=== PATIENT | male | born 1980 | race Caucasian/White ===

== ENCOUNTER 2020-05-17 12:34 | Emergency (ER) | payer MEDICAID ==
[~2020-05-17] VITALS: Ht 162.6 cm; Wt 124.7 kg
[2020-05-17 12:43] VITALS: BP 131/91
--- NOTE | 2020-05-17 13:06 | NUR ---
40 YEAR OLD MALE COMPLAINS OF SWELLING, REDNESS, AND WARMNESS IN LEFT LOWER EXTREMITY. PT DENIES PAIN OR TRAUMA. PT STATES HE WOKE UP AND NOTICED IT, NO VISIBLE WOUND. PT AOX4, BREATHING EVEN AND UNLABORED, SKIN WARM AND DRY. BED IN LOWEST POSITION, LOCKED, BED RAIL UPX1. PMH - DENIES ALLERGIES - NKA
[2020-05-17] MEDS ORDERED: AMPICILLIN/SULBACTAM 3 GM in NACL 0.9% MINI-BAG PLUS 100 ML IV ONE (13:10)
[2020-05-17] MEDS ORDERED: NACL 0.9% 1,000 ML IV SCH (13:10)
[2020-05-17] MEDS ORDERED: AMPICILLIN/SULBACTAM 3 GM VIAL ONE (13:20)
[2020-05-17 13:29] LABS: BASOPHILS % (AUTO) 0.4 % (0.0-2.0); EOSINOPHILS # (AUTO) 0.3 K/uL (0-0.4); EOSINOPHILS % (AUTO) 4.1 % (0.0-4.0); HEMATOCRIT 40.9 % (36-52); LYMPHOCYTES # (AUTO) 1.9 K/uL (2.0-11.5); LYMPHOCYTES % (AUTO) 22.8 % (20.5-51.1); MEAN CORPUSCULAR HEMOGLOBIN 31 pg (27-31); MEAN CORPUSCULAR HGB CONC 34 g/dL (33-37); MEAN CORPUSCULAR VOLUME 91.3 fL (80-94); MONOCYTES # (AUTO) 0.7 K/uL (0.8-1.0); MONOCYTES % (AUTO) 8.2 % (1.7-9.3); NEUTROPHILS # (AUTO) 5.3 K/uL (1.8-7.7); NEUTROPHILS % (AUTO) 64.5 % (42.2-75.2); PLATELET COUNT (AUTO) 225 K/uL (140-450); RED BLOOD CELL COUNT(AUTO) 4.48 MIL/uL (4.20-6.10); RED CELL DISTRIBUTION WIDTH 14.2 % (11.6-13.7); WHITE BLOOD COUNT (AUTO) 8.3 K/uL (4.8-10.8)
[2020-05-17 13:40] LABS: ANION GAP 13.9 (8-16); CARBON DIOXIDE 25.5 mmol/L (21-32); CREATININE 1.2 mg/dL (0.6-1.3); POTASSIUM 3.4 mmol/L (3.5-5.1)
--- NOTE | 2020-05-17 14:35 | NUR ---
Patient discharged with v/s stable. Written and verbal after care instructions about cellulitis given and explained. Patient alert, oriented and verbalized understanding of instructions. Ambulatory with steady gait. All questions addressed prior to discharge. ID band removed. Patient advised to follow up with PMD. Rx of keflex and bactrim given. Patient educated on indication of medication including possible reaction and side effects. Opportunity to ask questions provided and answered.
[2020-05-17 14:36] VITALS: BP 122/81
== END 2020-05-17 14:35 | disposition home or self-care (01) ==
LOC: MED 12:34
DX: L03.115 Cellulitis of right lower limb (principal)
CPT/HCPCS: 36415; 80048; 83605; 85025; 87040; 96365; 99284; J0295; J7030

== ENCOUNTER 2020-08-24 10:37 | Emergency (ER) | payer MEDICAID ==
[~2020-08-24] VITALS: Ht 175.3 cm; Wt 127.0 kg
[2020-08-24 10:42] VITALS: BP 143/84
--- NOTE | 2020-08-24 10:45 | NUR ---
PATIENT WHEELCHAIRED TO BED 7.
--- NOTE | 2020-08-24 11:00 | NUR ---
40 Y/O M COMING IN FROM HOME WITH C/C LEFT LEG PAIN. PT PRESENTS A&OX4 AMBULATORY WITH [facility] AND STATES ON MONDAY, HE WAS WASHING CARS AND BEGAN EXPERIENCING SHOOTING PAIN THAT BEGINS FROM HIS LEFT POSTERIOR GLUTES THAT RADIATES DOWN TO HIS LEFT LEG. PT STATES SCIATIAC TYPE NERVE, DESCRIBES IT PITCHING/CONSTANT, 10/10 PAIN. PT STATES HE WAS SEEN AT [place] YESTERDAY AND WAS DISCHARGED WITH [facility]. PT STATES AT 0500 08/24, HE TOOK [facility] WITH NO RELIEF. LUNG SOUNDS CTA. PT DENIES DIZZINESS, HEADACHE, SOB, COUGH, CHEST PAIN, AB PAIN, PAINFUL URINATION. SHERIFF'S SERGEANT IN PLACE. BED LOCKED IN LOWEST POSITION, SIDE RAILS X 1. PMH/MEDS: DENIES NKA
--- NOTE | 2020-08-24 11:40 | NUR ---
DR. JOHNSON IS EVALUATING PATIENT AT BEDSIDE.
[2020-08-24] MEDS ORDERED: ACETAMINOPHEN EXTRA STRENGTH 500 MG TAB PO ONE (11:50)
[2020-08-24] MEDS ORDERED: CYCLOBENZAPRINE 10 MG TAB PO ONE (11:50)
[2020-08-24] MEDS ORDERED: KETOROLAC 60 MG/2 ML VIAL IM ONE (11:50)
--- NOTE | 2020-08-24 12:50 | NUR ---
PT IS RESTING IN POSITION OF COMFORT. PT STATES POSITIVE RELIEF WITH MEDICATION; PAIN 6/10. EQUAL CHEST RISE AND FALL; RESPIRATIONS EVEN/UNLABORED. ALL PT NEEDS MET AT THIS TIME. CIRCUITRY NEGATIVE INSPECTOR IN PLACE. BED LOCKED IN LOWEST POSITION, SIDE RAILS X 1, CALL LIGHT IN REACH.
[2020-08-24] MEDS ORDERED: CYCL10TA33 PO (13:23)
[2020-08-24] MEDS ORDERED: ACET-2619 PO (13:23)
[2020-08-24] MEDS ORDERED: IBUP-2213 PO (13:23)
[2020-08-24] MEDS ORDERED: LID5T TP (13:23)
[2020-08-24 13:36] VITALS: BP 126/70
--- NOTE | 2020-08-24 13:36 | NUR ---
Patient discharged with v/s stable. Written and verbal after care instructions given and explained. Patient alert, oriented and verbalized understanding of instructions. Ambulatory with steady gait. All questions addressed prior to discharge. ID band removed. Patient advised to follow up with PMD. Rx of ACETAMINOPHEN, CYCLOBENZAPRINE, IBUPROFEN, LIDOCAINE HYD PATCH given. Patient educated on indication of medication including possible reaction and side effects. Opportunity to ask questions provided and answered.
[2020-08-25] MEDS ORDERED: LIDOCAINE 5% 1 EA PATCH TP SCH (09:00)
== END 2020-08-24 13:36 | disposition home or self-care (01) ==
LOC: MED 10:37
DX: M54.32 Sciatica, left side (principal)
CPT/HCPCS: 96372; 99283; J1885

== ENCOUNTER 2020-09-13 17:34 | Emergency (ER) | payer MEDICAID ==
[~2020-09-13] VITALS: Ht 170.2 cm; Wt 129.3 kg
[~2020-09-13 17:34] MED LIST: ACET-2619 PO; CYCL10TA33 PO; IBUP-2213 PO; LID5T TP
[2020-09-13 17:36] VITALS: BP 145/88
--- NOTE | 2020-09-13 17:40 | NUR ---
Ambulated to bed 10
--- NOTE | 2020-09-13 17:44 | NUR ---
40 Y/O MALE C/O RIGHT KNEE PAIN X1 DAY, PATIENT STATES LAST TIME THIS PAIN OCCURRED IT WAS DUE TO GOUT. PAIN IS 10/10, SHARP. NO SWELLING OR REDNESS NOTED TO KNEE AREA. NO INJURY OR TRAUMA REPORTED. SKIN INTACT NO PMH NKDA
[2020-09-13] MEDS ORDERED: predniSONE 20 MG TAB PO ONE (18:10)
[2020-09-13] MEDS ORDERED: LIDOCAINE/EPI 1% 1:100000 20 ML VIAL INJ ONE (18:25)
[2020-09-13] MEDS ORDERED: HYDROcodone/APAP 5/325 MG 1 TAB TAB PO ONE (18:25)
--- NOTE | 2020-09-13 18:36 | NUR ---
RAD AT BEDSIDE
--- NOTE | 2020-09-13 19:07 | NUR ---
REPORT GIVEN TO GEOVANNI RODNEY. TRANSFER OF CARE AT THIS TIME.
--- NOTE | 2020-09-13 19:08 | NUR ---
RECEIVED TRANSFER OF CARE REPORT FROM SHANNON GALARZA FOR CONTINUATION OF CARE.
--- NOTE | 2020-09-13 19:09 | NUR ---
PT FOUND AWAKE IN SEMI-CORONA'S POSITION IN BED. PT DENIES PAIN, DENIES DISCOMFORT, AND DENIES DISTRESS. BED LOCKED IN LOWEST POSITION WITH 1 SIDE RAIL UP.
[2020-09-13] MEDS ORDERED: LIDOCAINE MPF 1% 10 MG/ML VIAL INJ ONE (19:10)
[2020-09-13] MEDS ORDERED: LIDOCAINE MPF 1% 5 ML ONE (19:10)
--- NOTE | 2020-09-13 19:45 | NUR ---
ANDREA AT [facility].
--- NOTE | 2020-09-13 21:08 | NUR ---
PT FOUND ASLEEP IN SEMI-CORONA'S POSITION. PT HAS VISIBLE EQUAL RISE AND FALL UPON RESPIRATION. PT HAS NO SIGNS OF DISTRESS. BED LOCKED IN LOWEST POSITION WITH 1 SIDE RAIL UP.
[2020-09-13 21:18] LABS: GLUCOSE,BODY FLUID 112 mg/dL
[2020-09-13] MEDS ORDERED: PRED20TA5 PO (22:26)
[2020-09-13] MEDS ORDERED: IBUP-2213 PO (22:26)
[2020-09-13 22:36] VITALS: BP 123/76
--- NOTE | 2020-09-13 22:36 | NUR ---
Patient discharged with v/s stable. Written and verbal after care instructions given and explained. Patient alert, oriented and verbalized understanding of instructions. Ambulatory with steady gait. All questions addressed prior to discharge. ID band removed. Patient advised to follow up with PMD. Rx of IBUPROFEN AND PREDNISONE given. Patient educated on indication of medication including possible reaction and side effects. Opportunity to ask questions provided and answered.
[2020-09-14 14:20] LABS: APPEARANCE,UNSPUN,BODY FLUID HAZY (CLEAR); SPECIMENTYPE,BODY FLUID SYNOVIAL
[2020-09-14 14:21] LABS: COLOR,BODY FLUID LT YELLOW (LT YELLOW); TOTAL VOLUME,BODY FLUID 25 mL
[2020-09-14 14:22] LABS: RBC, BODY FLUID 16 /cu. mm.; WBC, BODY FLUID 170 /cu. mm.
[2020-09-14 14:23] LABS: GLUCOSE,BODY FLUID 108 mg/dL; POLYNUCLEAR, BODY FLUID 93 %
== END 2020-09-13 22:36 | disposition home or self-care (01) ==
LOC: MED 17:34
DX: M25.461 Effusion, right knee (principal); Z79.899 Other long term (current) drug therapy
CPT/HCPCS: 20611; 36415; 73562; 82945; 84157; 87070; 87205; 89051; 99284; J2001; 87075

== ENCOUNTER 2021-11-01 12:39 | Emergency (ER) | payer MEDICAID, OTHER ==
[~2021-11-01] VITALS: Ht 167.6 cm; Wt 132.6 kg
[~2021-11-01 12:39] MED LIST changes: +PRED20TA5 PO
[2021-11-01 12:56] VITALS: BP 133/75
[2021-11-01] MEDS ORDERED: CYCLOBENZAPRINE 10 MG TAB PO ONE (13:55)
[2021-11-01] MEDS ORDERED: KETOROLAC 60 MG/2 ML VIAL IM ONE (13:55)
--- NOTE | 2021-11-01 14:00 | NUR ---
41Y MALE BIB SELF DUE TO R HIP/BACK PAIN SINCE MONDAY. PT DENIES ANY TRAUMA. STATES RIGHT LOW BACK, 10/, SHARP/CONSTANT, RADIATING DOWN R LEG. PATIENT STATES WORSENS WITH AMBUALTING. DENIES MEDICATIONS PRIOR TO ARRIVAL. PT REMAINS IN CHAIR A AT THIS TIME. NO TRAUMA, DEFORMITIES NOTED. PMH: DENIES NKA
[2021-11-01] MEDS ORDERED: NAPR-54 PO (14:01)
[2021-11-01] MEDS ORDERED: LID5T TP (14:01)
[2021-11-01] MEDS ORDERED: CYCL-711 PO (14:01)
[2021-11-01 14:22] VITALS: BP 133/75
--- NOTE | 2021-11-01 14:22 | NUR ---
Patient discharged with v/s stable. Written and verbal after care instructions ABOUT SCIATICA given and explained. Patient alert, oriented and verbalized understanding of instructions. Ambulatory with steady gait. All questions addressed prior to discharge. ID band removed. Patient advised to follow up with PMD. Rx of FLEXERIL, LIDODERM 5% PATCH AND NAPROSYN given. Patient educated on indication of medication including possible reaction and side effects. Opportunity to ask questions provided and answered.
== END 2021-11-01 14:22 | disposition home or self-care (01) ==
LOC: MED 12:39
DX: M54.41 Lumbago with sciatica, right side (principal); Z79.899 Other long term (current) drug therapy
CPT/HCPCS: 96372; 99283; J1885

== ENCOUNTER 2021-12-27 23:09 | Emergency (ER) | payer OTHER ==
[~2021-12-27] VITALS: Ht 165.1 cm; Wt 135.2 kg
[~2021-12-27 23:09] MED LIST changes: +CYCL-711 PO; +NAPR-54 PO
[2021-12-27 23:26] VITALS: BP 168/99
--- NOTE | 2021-12-28 02:16 | NUR ---
patient called back for medical evaluation from lobby, no response.
--- NOTE | 2021-12-28 02:32 | NUR ---
patient called back from lobby, front of ER and parking lot, no response.
--- NOTE | 2021-12-28 03:13 | NUR ---
patient called back for medical evaluaton from [facility], no reponse. PATIENT LEFT WITHOUT BEING SEEN BY DR. Hanks. NO FURTHER CARE PROVIDED FOR PATIENT.
== END 2021-12-28 02:16 | disposition left against medical advice (07) ==
LOC: MED 23:09
DX: M25.572 Pain in left ankle and joints of left foot (principal); M25.571 Pain in right ankle and joints of right foot; Z53.21 Procedure and treatment not carried out due to patient leaving prior to being seen by health care provider

== ENCOUNTER 2022-05-03 12:42 | Emergency (ER) | payer OTHER ==
[~2022-05-03] VITALS: Ht 167.6 cm; Wt 134.3 kg
[2022-05-03 13:10] VITALS: BP 193/124
--- NOTE | 2022-05-03 13:19 | NUR ---
PT W/C TO BED 12.
[2022-05-03] MEDS ORDERED: KETOROLAC 15 MG/ML VIAL IM ONE ×2 (13:25→14:30)
--- NOTE | 2022-05-03 13:33 | NUR ---
X-Ray at bedside.
[2022-05-03] MEDS ORDERED: LIDOCAINE/EPI MPF 1%1:200000 30 ML VIAL INJ ONE (13:45)
[2022-05-03] MEDS ORDERED: LIDOCAINE MPF 1% 0 ML ONE (13:47)
--- NOTE | 2022-05-03 14:01 | NUR ---
DR GARCIA AT BEDSIDE FOR PROCEDURE
[2022-05-03 14:45] LABS: BASOPHILS % (AUTO) 0.2 % (0.0-2.0); EOSINOPHILS # (AUTO) 0.1 K/uL (0-0.4); EOSINOPHILS % (AUTO) 1.3 % (0.0-4.0); HEMATOCRIT 40.6 % (36-52); HEMOGLOBIN 13.9 g/dL (12.0-18.0); LYMPHOCYTES # (AUTO) 1.3 K/uL (2.0-11.5); LYMPHOCYTES % (AUTO) 14.8 % (20.5-51.1); MEAN CORPUSCULAR HEMOGLOBIN 30 pg (27-31); MEAN CORPUSCULAR HGB CONC 34 g/dL (33-37); MEAN CORPUSCULAR VOLUME 88.6 fL (80-94); MONOCYTES # (AUTO) 0.9 K/uL (0.8-1.0); MONOCYTES % (AUTO) 10.1 % (1.7-9.3); NEUTROPHILS # (AUTO) 6.4 K/uL (1.8-7.7); NEUTROPHILS % (AUTO) 73.6 % (42.2-75.2); PLATELET COUNT (AUTO) 233 K/uL (140-450); RED BLOOD CELL COUNT(AUTO) 4.58 MIL/uL (4.20-6.10); RED CELL DISTRIBUTION WIDTH 14.6 % (11.6-13.7); WHITE BLOOD COUNT (AUTO) 8.6 K/uL (4.8-10.8)
[2022-05-03 15:01] LABS: ALBUMIN 3.5 g/dL (3.4-5.0); ANION GAP 14.5 (8-16); CARBON DIOXIDE 27.1 mmol/L (21-32); CREATININE 0.9 mg/dL (0.6-1.3); POTASSIUM 3.6 mmol/L (3.5-5.1); TOTAL BILIRUBIN 0.3 mg/dL (0.0-1.0)
--- NOTE | 2022-05-03 15:24 | NUR ---
41 Y/O MALE BIB SELF C/O RIGHT KNEE, ROSA FOOT PAIN, SWELLING X 1 WEEKS. NOTED REDNESS AND SWELLING ON THE KNEE. DENIES TRAUMA/INJURY. BLOOD SUGAR 107 IN TRIAGE PMH: DM, GOUT NKA
[2022-05-03 15:37] LABS: APPEARANCE,SPUN,BODY FLUID CLEAR (CLEAR); APPEARANCE,UNSPUN,BODY FLUID HAZY (CLEAR); SPECIMENTYPE,BODY FLUID SYNOVIAL
[2022-05-03 15:38] LABS: COLOR,BODY FLUID LT YELLOW (LT YELLOW); RBC, BODY FLUID 4 /cu. mm.; TOTAL VOLUME,BODY FLUID 28 mL; WBC, BODY FLUID 360 /cu. mm.
[2022-05-03] MEDS ORDERED: MORPHINE SULFATE 4 MG/ML SYR IM ONE (16:20)
[2022-05-03 16:24] LABS: POLYNUCLEAR, BODY FLUID 98 %
--- NOTE | 2022-05-03 19:18 | NUR ---
Pt report given to ALONSO GALARZA. Transfer of care at this time.
[2022-05-03] MEDS ORDERED: HYDROcodone/APAP 5/325 MG 1 TAB TAB PO ONE (20:45)
[2022-05-03] MEDS ORDERED: HYDROcodone/APAP 5/325 MG 1 TAB TAB ONE ×2 (22:14)
[2022-05-03] MEDS ORDERED: NAPR-54 PO (23:51)
[2022-05-03] MEDS ORDERED: ACET-8386 PO (23:51)
[2022-05-04 00:15] VITALS: BP 128/83
== END 2022-05-04 00:15 | disposition home or self-care (01) ==
LOC: MED 12:42
DX: M25.462 Effusion, left knee (principal); M25.461 Effusion, right knee; M10.9 Gout, unspecified
CPT/HCPCS: 20610; 36415; 73562; 80053; 82945; 84157; 85025; 85651; 86140; 87070; 87205; 89051; 96372; 99285; J1885; J2001; J2270; Q0092

== ENCOUNTER 2023-07-25 08:37 | Emergency (ER) | payer OTHER ==
[~2023-07-25] VITALS: Ht 165.1 cm; Wt 133.8 kg
[~2023-07-25 08:37] MED LIST changes: +ACET-8905 PO
[2023-07-25 08:39] VITALS: BP 106/58; PULSE 90; RESP 20; TEMP 97.4; O2SAT 97
[2023-07-25 09:00] VITALS: O2SAT 97
[2023-07-25 09:11] LABS: BASOPHILS # (AUTO) 0.1 K/uL (0.00-0.22); BASOPHILS % (AUTO) 0.9 % (0.0-2.0); EOSINOPHILS # (AUTO) 0.3 K/uL (0-0.4); EOSINOPHILS % (AUTO) 5.1 % (0.0-4.0); HEMATOCRIT 45.2 % (36-52); HEMOGLOBIN 15.4 g/dL (12.0-18.0); LYMPHOCYTES # (AUTO) 1.6 K/uL (2.0-11.5); LYMPHOCYTES % (AUTO) 26.2 % (20.5-51.1); MEAN CORPUSCULAR HEMOGLOBIN 30 pg (27-31); MEAN CORPUSCULAR HGB CONC 34 g/dL (33-37); MEAN CORPUSCULAR VOLUME 89.5 fL (80-94); MONOCYTES # (AUTO) 0.3 K/uL (0.8-1.0); MONOCYTES % (AUTO) 5.5 % (1.7-9.3); NEUTROPHILS # (AUTO) 3.9 K/uL (1.8-7.7); NEUTROPHILS % (AUTO) 62.3 % (42.2-75.2); PLATELET COUNT (AUTO) 194 K/uL (140-450); RED BLOOD CELL COUNT(AUTO) 5.05 MIL/uL (4.20-6.10); RED CELL DISTRIBUTION WIDTH 13.8 % (11.6-13.7); WHITE BLOOD COUNT (AUTO) 6.2 K/uL (4.8-10.8)
[2023-07-25 09:20] LABS: ANION GAP 12.2 (8-16); CALCIUM 8.5 mg/dL (8.5-10.1); CARBON DIOXIDE 28.8 mmol/L (21-32); CREATININE 1.1 mg/dL (0.6-1.3)
[2023-07-25] MEDS ORDERED: METF-346 PO (10:03)
== END 2023-07-25 10:09 | disposition home or self-care (01) ==
LOC: MED 08:37
DX: E11.65 Type 2 diabetes mellitus with hyperglycemia (principal); Z79.899 Other long term (current) drug therapy; Z79.1 Long term (current) use of non-steroidal anti-inflammatories (NSAID)
CPT/HCPCS: 36415; 80048; 85025; 99283